=== PATIENT | female | born 1965 | race Native Hawaiian/Other Pacific Islander ===

== ENCOUNTER 2017-02-08 11:01 | Outpatient (CLI) | payer OTHER | END 2017-02-08 19:23 | disposition home or self-care (01) | LOC: RAD 11:01 | DX: J20.9 Acute bronchitis, unspecified (principal) ==

== ENCOUNTER 2018-03-08 11:04 | Outpatient (CLI) | payer OTHER | END 2018-03-08 22:49 | disposition home or self-care (01) | LOC: MAMMO 11:04 | DX: Z12.31 Encounter for screening mammogram for malignant neoplasm of breast (principal); Z13.820 Encounter for screening for osteoporosis; N95.8 Other specified menopausal and perimenopausal disorders ==

== ENCOUNTER 2018-05-03 07:45 | Day surgery (SDC) | payer OTHER ==
[2018-05-03 08:23] LABS: PLATELET COUNT 376 K/uL (152-353)
[2018-05-03 09:00] LABS: POTASSIUM 3.9 mmol/L (3.6-5.2)
== END 2018-05-03 11:05 | disposition home or self-care (01) ==
LOC: OR 07:45
PROVIDERS: Student in an Organized Health Care Education/Training Program
PROC: 0DJD8ZZ Inspection of Lower Intestinal Tract, Via Natural or Artificial Opening Endoscopic (ICD-10-PCS; principal; 2018-05-03)
DX: Z12.11 Encounter for screening for malignant neoplasm of colon (principal); I10 Essential (primary) hypertension
CPT/HCPCS: 80053; 85027; J2001; J2250; J2405; J2704

== ENCOUNTER 2020-10-08 13:04 | Outpatient (CLI) | payer OTHER | END 2020-10-08 21:56 | disposition home or self-care (01) | LOC: INF 13:04 | PROVIDERS: ATTEND Internal Medicine Endocrinology, Diabetes & Metabolism | DX: Z23 Encounter for immunization (principal) | CPT/HCPCS: 96372 ==

== ENCOUNTER 2020-11-05 13:06 | Outpatient (CLI) | payer OTHER | END 2020-11-05 22:50 | disposition home or self-care (01) | LOC: INF 13:06 | PROVIDERS: ATTEND Internal Medicine Endocrinology, Diabetes & Metabolism | DX: Z23 Encounter for immunization (principal) | CPT/HCPCS: 96372 ==

== ENCOUNTER 2022-03-23 12:53 | Outpatient (CLI) | payer OTHER | END 2022-03-23 19:51 | disposition home or self-care (01) | LOC: MAMMO 12:53 | PROVIDERS: ATTEND Nurse Practitioner | DX: Z12.31 Encounter for screening mammogram for malignant neoplasm of breast (principal) ==